=== PATIENT | female | born 1950 | race Caucasian/White ===

== ENCOUNTER 2018-04-17 07:24 | Outpatient (CLI) | payer MEDICARE, BC ==
[2018-04-17 11:11] LABS: Bilirubin Negative (Negative); Blood, Urine Negative (Negative); Clarity CLEAR (Clear); Glucose, Urine (Dipstick) Negative (Negative); Leukocyte Small (Negative); Nitrite Negative (Negative); Protein, Urine (Dipstick) Negative (Neg-Trace); Specific Gravity, Urine 1.017 (1.002-1.036); Urobilinogen 0.2 mg/dL (0.2-1.0); pH, Urine 5.5 (5.0-9.0)
[2018-04-17 11:14] LABS: Bacteria/HPF None Seen HPF (None Seen); Hyaline Casts/LPF 0-3 HYALINE CAST LPF (0-3 Hyaline); Pathc Cast-AUWi Flag 0.58 (0-2.49); RBC/HPF 0-3 HPF (0-3); Squamous Epithelial 0-3 HPF (0-3); WBC/HPF 0-3 HPF (0-3)
--- NOTE | 2018-04-17 17:08 | EKG ---
Test Reason : Blood Pressure : / mmHG Vent. Rate : 075 BPM Atrial Rate : 075 BPM P-R Int : 182 ms QRS Dur : 118 ms QT Int : 384 ms P-R-T Axes : 051 -12 055 degrees QTc Int : 428 ms Normal sinus rhythm Possible Left atrial enlargement Incomplete right bundle branch block Cannot rule out Anterior infarct , age undetermined Interference artifact Abnormal ECG No previous ECGs available Confirmed by DR. Claudine PITTMAN ([id number]) on 04/17/2018 5:08:23 PM Referred By: ROSIAT Confirmed By:DR. Claudine PITTMAN
== END 2018-04-17 07:25 | disposition home or self-care (01) ==
LOC: LABBT 07:24
PROVIDERS: ATTEND Orthopaedic Surgery
DX: Z01.818 Encounter for other preprocedural examination (principal); M16.12 Unilateral primary osteoarthritis, left hip
CPT/HCPCS: 81001; 87081; 93005; 93010

== ENCOUNTER 2018-04-17 08:45 | Inpatient (IN) | payer MEDICARE, BC ==
[2018-04-29] MEDS ORDERED: Fentanyl 100 MCG/2 ML VIAL ONE ×3 (07:43→12:26)
[2018-04-29] MEDS ORDERED: Midazolam HCl 2 mg/2 ml Vial ONE (07:43)
[2018-04-29] MEDS ORDERED: CEFAZOLIN 2 GM/50 ML BAG ONE (07:52)
[2018-04-29] MEDS ORDERED: Sodium Chloride 0.9% 100 ML ONE (07:52)
[2018-04-29] MEDS ORDERED: Tranexamic Acid 1,000 MG/10 ML VIAL ONE ×2 (07:52→13:18)
[2018-04-29] MEDS ORDERED: Vancomycin HCl 1.5 GM in Sodium Chloride 0.9% 250 ML 300 ML IVPB SCH (08:00)
[2018-04-29] MEDS ORDERED: Scopolamine 1.5 mg/72 hour Patch ONE (08:42)
[2018-04-29] MEDS ORDERED: diphenhydrAMINE 50 MG/ML VIAL IVP PRN (09:45)
[2018-04-29] MEDS ORDERED: diphenhydrAMINE 50 MG/ML VIAL IM PRN (09:45)
[2018-04-29] MEDS ORDERED: Hydrocerin (Eucerin) Cream 120 gm Jar TOP PRN (09:45)
[2018-04-29] MEDS ORDERED: Bupivacaine 0.25% 10 ML VIAL EPIDURAL PRN (09:45)
[2018-04-29] MEDS ORDERED: traMADol HCl 50 MG TAB PO PRN (09:45)
[2018-04-29] MEDS ORDERED: Promethazine HCl 25 MG SUPP PR PRN (09:45)
[2018-04-29] MEDS ORDERED: Naloxone HCl 0.4 mg/ml Vial IVP PRN (09:45)
[2018-04-29] MEDS ORDERED: HYDROcodone/Acetaminophen 5/325 mg Tablet PO PRN (09:45)
[2018-04-29] MEDS ORDERED: Naloxone HCl 0.4 mg/ml Vial IV PRN (09:45)
[2018-04-29] MEDS ORDERED: Promethazine HCl 25 MG/ML VIAL IM PRN ×2 (09:45→12:21)
[2018-04-29] MEDS ORDERED: Ondansetron PF 4 MG/2 ML Vial IVP PRN (09:45)
[2018-04-29] MEDS ORDERED: Zolpidem Tartrate 5 MG TAB PO PRN ×2 (09:45→12:21)
[2018-04-29] MEDS ORDERED: Ropivacaine 0.2% HCl/PF 20 ML ONE (10:40)
[2018-04-29] MEDS ORDERED: Acetaminophen 325 MG TAB PO PRN (12:21)
[2018-04-29] MEDS ORDERED: HYDROcodone/Acetaminophen 10/325 mg Tablet PO PRN ×2 (12:21)
[2018-04-29] MEDS ORDERED: diphenhydrAMINE 25 MG CAP PO PRN (12:21)
[2018-04-29] MEDS ORDERED: CEFAZOLIN/Water 2 GM/20 ML SYRINGE SLOW IVP SCH (12:30)
--- NOTE | 2018-04-29 13:41 | RAD ---
RADIOGRAPH LEFT HIP TWO VIEWS: Date: 04-29-18 Time: 12:36 p.m. History: 68-year-old female with chronic left hip pain, status post-surgery. Comparison: None. FINDINGS: Metallic acetabular cup articulates with metallic femoral head prosthesis, connected to metallic stem that reaches the proximal femoral shaft. IMPRESSION: Status post total left hip placement arthroplasty. POS: MEME
[2018-04-29] MEDS: sulfaSALAzine 500 MG TAB PO SCH ×3 (14:22→21:12)
[2018-04-29] MEDS: Ketorolac Tromethamine 30 MG/ML VIAL IVP SCH ×2 (14:25→17:50)
[2018-04-29] MEDS: Sodium Chloride 0.9% 1,000 ML IV SCH ×2 (14:25→20:29)
[2018-04-29] MEDS ORDERED: Artificial Tears 18 DROP/0.9 ML EA EYE PRN (14:27)
[2018-04-29] MEDS ORDERED: hydrALAZINE 20 MG/ML VIAL SLOW IVP PRN (14:27)
[2018-04-29] MEDS ORDERED: Eucerin (Mineral Oil/Petrolatum,White) 30 gm Jar TOP PRN (14:27)
[2018-04-29] MEDS ORDERED: Diabetic Tussin 200 MG/10 ML UDCUP PO PRN (14:27)
[2018-04-29] MEDS ORDERED: Calcium Carbonate 500 MG ChewTAB PO PRN (14:27)
[2018-04-29] MEDS ORDERED: Sodium Chloride 0.65% Nasal 44 ML BOT EA NARE PRN (14:27)
[2018-04-29] MEDS ORDERED: Loperamide HCl 2 MG CAP PO PRN (14:27)
[2018-04-29] MEDS ORDERED: Cepastat Lozenges 1 LOZ PO PRN (14:27)
--- NOTE | 2018-04-29 14:40 | PDOC.PN ---
- Subjective Encounter Start Date: 04/29/18 Encounter Start Time: 14:39 -: old records requested/rev pt c/o parasthesia in her hands, pain controlled, has parathyroidectomy in past , s/p left hip replacement, consulted for medical management Patient seen and examined. - Objective Resuscitation Status - Order Detail: 04/29/18 14:27 Resuscitation Status Routine Resuscitation Status: FULL: Full Resuscitation MAR Reviewed: Yes Vital Signs & Weight: Weight Weight 225 lb Additional Labs: old meditech record reviewed Radiology Reviewed by me: Yes (hip xray reviewed) EKG Reviewed by me: Yes (ekg rbbb) Phys Exam - Physical Examination Constitutional: NAD HEENT: PERRLA, moist MMs, sclera anicteric Neck: no JVD, supple Respiratory: no wheezing, no rales, no rhonchi Cardiovascular: RRR, no significant murmur, no rub Gastrointestinal: soft, non-tender, no distention, positive bowel sounds Musculoskeletal: no edema, pulses present surgical site with dressing, epidural in place, liang+ scd+ Neurological: non-focal, normal sensation, moves all 4 limbs Lymphatic: no nodes Psychiatric: normal affect, A&O x 3 Skin: no rash, normal turgor Dx/Plan (1) Status post total hip replacement, left Code(s): Z96.642 - PRESENCE OF LEFT ARTIFICIAL HIP JOINT Status: Acute (2) Rheumatoid arthritis Code(s): M06.9 - RHEUMATOID ARTHRITIS, UNSPECIFIED Status: Chronic (3) Postsurgical hypoparathyroidism Code(s): E89.2 - POSTPROCEDURAL HYPOPARATHYROIDISM Status: Chronic (4) GERD (gastroesophageal reflux disease) Code(s): K21.9 - GASTRO-ESOPHAGEAL REFLUX DISEASE WITHOUT ESOPHAGITIS Status: Chronic (5) Hypertension Code(s): I10 - ESSENTIAL (PRIMARY) HYPERTENSION Status: Chronic (6) Morbid obesity with BMI of 40.0-44.9, adult Code(s): E66.01 - MORBID (SEVERE) OBESITY DUE TO EXCESS CALORIES; Z68.41 - BODY MASS INDEX (BMI) 40.0-44.9, ADULT Status: Chronic - Plan cont current plan of care, plan discussed w/ family, PT/OT * will check CMP now * will start calcium rich food and her calcium supplement * home medication reconciled * will hold BP meds for SBP <120 * medication reviewed as below * symptomatic treatment * epidural as per anesthesia * discussed with family * code status full code * PT/OT as per [facility] protocol treatment. Review of Systems - Review of Systems Eyes: negative: Pain, Vision Change, Conjunctivae Inflammation, Eyelid Inflammation, Redness, Other ENT: negative: Ear Pain, Ear Discharge, Nose Pain, Nose Discharge, Nose Congestion, Mouth Pain, Mouth Swelling, Throat Pain, Throat Swelling, Other Respiratory: negative: Cough, Dry, Shortness of Breath, Hemoptysis, SOB with Excertion, Pleuritic Pain, Sputum, Wheezing Cardiovascular: negative: chest pain, palpitations, orthopnea, paroxysmal nocturnal dyspnea, edema, light headedness, other Gastrointestinal: negative: Nausea, Vomiting, Abdominal Pain, Diarrhea, Constipation, Melena, Hematochezia, Other Genitourinary: negative: Dysuria, Frequency, Incontinence, Hematuria, Retention , Other Musculoskeletal: negative: Neck Pain, Shoulder Pain, Arm Pain, Back Pain, Hand Pain, Leg Pain, Foot Pain, Other Neurological: Numbness. negative: Weakness, Incoordination, Change in Speech, Confusion, Seizures, Other - Medications/Allergies Allergies/Adverse Reactions: Allergies Allergy/AdvReac Type Severity Reaction Status Date / Time No Known Allergies Allergy Verified 04/17/18 12:31 Medications: Current Medications Acetaminophen (Tylenol) 650 mg PO Q4H PRN PRN Reason: Headache/Fever or Pain Hydrocodone Bitart/Acetaminophen ([place] 5/325) 1 tab PO Q4H PRN PRN Reason: Mild Pain 0-3 Hydrocodone Bitart/Acetaminophen ([place] 5/325) 2 tab PO Q4H PRN PRN Reason: For Moderate Pain 4-6 Artificial Tears (Tears Naturale) 2 drop EA EYE PRN PRN PRN Reason: Dry Eyes Aspirin (Ecotrin) 81 mg PO BID [facility] Bupivacaine HCl (Marcaine) 5 ml EPIDURAL ONE PRN PRN Reason: UNCONTROLLED PAIN Stop: 05/02/18 09:46 Calcium Carbonate (Tums) 1,000 mg PO Q4H PRN PRN Reason: Heartburn or Indigestion Calcium/Vitamin D (Caltrate 600 + Vit D) 1 tab PO BID [facility] Last Admin: 04/29/18 14:18 Dose: 1 tab Celecoxib (Celebrex) 200 mg PO DAILY [facility] Cholecalciferol (Vitamin D3) 1,000 units PO DAILY [facility] Diphenhydramine HCl (Benadryl) 25 mg PO Q3H PRN PRN Reason: Itching Diphenhydramine HCl (Benadryl) 25 mg IM Q3H PRN PRN Reason: Itching Diphenhydramine HCl (Benadryl) 25 mg IVP Q3H PRN PRN Reason: Itching Diphenhydramine HCl (Benadryl) 25 mg PO Q6H PRN PRN Reason: Itching Docusate Sodium (Colace) 200 mg PO DAILY [facility] Emollient Cream (Hydrocerin Cream) 0 gm TOP PRN PRN PRN Reason: Itching Ferrous Gluconate (Fergon) 324 mg PO BID [facility] Guaifenesin (Robitussin Sf) 200 mg PO Q4H PRN PRN Reason: Cough HCTZ/Losartan Potassium (Hyzaar 100/25) 1 tab PO DAILY [facility] Hydralazine HCl (Apresoline) 10 mg SLOW IVP Q4H PRN PRN Reason: SBP > 180 and HR < 70 Acetaminophen 1,000 mg/ Device 100 mls @ 400 mls/hr IVPB Q6H PRN PRN Reason: MILD PAIN/FEVER Stop: 04/30/18 09:46 Bupivacaine HCl 10 ml/ Sodium (Chloride) 100 mls @ 8 mls/hr EPIDURAL INF [facility] Sodium Chloride (Normal Saline 0.9%) 1,000 mls @ 100 mls/hr IV .Q10H [facility] Last Admin: 04/29/18 14:25 Dose: Not Given Cefazolin Sodium/Dextrose 2 gm (/ Device) 50 mls @ 100 mls/hr IVPB 0800,1600, 2359 [facility] Stop: 04/30/18 00:28 Iron/Minerals/Multivitamins (Theragran M) 1 tab PO DAILY [facility] Ketorolac Tromethamine (Toradol) 15 mg IVP Q6HR [facility] Stop: 05/01/18 06:01 Last Admin: 04/29/18 14:25 Dose: Not Given Loperamide HCl (Imodium) 2 mg PO PRN PRN PRN Reason: Diarrhea/Loose Stools Mineral Oil/White Petrolatum (Eucerin Cream) 0 gm TOP BIDPRN PRN PRN Reason: Dry Skin Miscellaneous Information (Communication Order-Pharmacy) 1 each FS ASDIR ELO[facility] Naloxone HCl (Narcan) 0.2 mg IV Q5MIN PRN PRN Reason: RR <=8 OR OBTUNDED/UNAROUSABLE Naloxone HCl (Narcan) 0.1 mg IVP Q15MIN PRN PRN Reason: URINARY RETENTION Ondansetron HCl (Zofran) 4 mg IVP Q6H PRN PRN Reason: Nausea/Vomiting Ondansetron HCl (Zofran) 4 mg IVP Q6H PRN PRN Reason: Nausea/Vomiting Pantoprazole Sodium (Protonix) 40 mg PO DAILY [facility] Promethazine HCl (Phenergan) 12.5 mg IM Q4H PRN PRN Reason: Nausea Promethazine HCl (Phenergan Suppository) 25 mg UT Q4H PRN PRN Reason: Nausea/Vomiting Promethazine HCl (Phenergan) 12.5 mg IM Q4H PRN PRN Reason: Nausea/Vomiting Senna/Docusate Sodium (Senokot S) 2 tab PO BID [facility] Sodium Chloride (Flush - Normal Saline) 10 ml IVF PRN PRN PRN Reason: Saline Flush Sodium Chloride ([place] Nasal [place] 0.65%) 0 ml EA NARE QIDPRN PRN PRN Reason: Nasal Congestion Sulfasalazine (Azulfidine) 500 mg PO QID [facility] Last Admin: 04/29/18 14:22 Dose: Not Given Throat Lozenges (Cepastat Lozenges) 1 esequiel PO Q2H PRN PRN Reason: Sore Throat Tramadol HCl (Ultram) 50 mg PO Q6H PRN PRN Reason: Mild Pain 1-3 Tramadol HCl (Ultram) 100 mg PO Q6H PRN PRN Reason: Moderate Pain 4-6 Trazodone HCl (Desyrel) 75 mg PO HS [facility] Zolpidem Tartrate (Ambien) 5 mg PO HSPRN PRN PRN Reason: Insomnia
[2018-04-29 15:24] LABS: ALT (SGPT) 16 U/L (8-55); AST (SGOT) 19 U/L (5-34); Albumin 3.6 g/dL (3.4-4.8); Alkaline Phosphatase 62 U/L (40-150); Anion Gap 10 mmol/L (10-20); BUN (Urea Nitrogen) 13 mg/dL (9.8-20.1); Bilirubin, Total 0.4 mg/dL (0.2-1.2); Calc. Creatinine Clearance 114 mL/min (70-130); Calcium 8.6 mg/dL (7.8-10.44); Carbon Dioxide 29 mmol/L (23-31); Chloride 105 mmol/L (98-107); Estimated GFR-MDRD 77; Globulin 2.4 g/dL (2.4-3.5); Glucose 131 mg/dL (80-115); Potassium 3.8 mmol/L (3.5-5.1); Sodium 140 mmol/L (136-145)
[2018-04-29] MEDS: HYDROcodone/Acetaminophen 5/325 mg Tablet PO PRN (15:59)
[2018-04-29] MEDS ORDERED: Ondansetron PF 4 MG/2 ML Vial ONE (16:22)
[2018-04-29] MEDS ORDERED: ePHEDrine/0.9% NaCl/PF SYRINGE 50 mg/10 ml ONE (16:22)
[2018-04-29] MEDS ORDERED: Rocuronium Bromide 10 MG/ML (10ML VIAL) ONE (16:22)
[2018-04-29] MEDS ORDERED: Lidocaine 1% PF 5 ML VIAL ONE (16:22)
[2018-04-29] MEDS ORDERED: PROPOFOL 200 MG/20 ML VIAL ONE (16:22)
[2018-04-29] MEDS ORDERED: Glycopyrrolate 0.2 MG/ML 5 ML SYRINGE ONE (16:22)
[2018-04-29 16:53] VITALS: BMI 42.5
[2018-04-29] MEDS: CEFAZOLIN 2 GM/50 ML-DEXTROSE 2 GM in Premix Bag 1 BAG IVPB SCH (17:49)
--- NOTE | 2018-04-29 18:45 | OP ---
DATE OF PROCEDURE: 04/29/2018 PROCEDURE PERFORMED: Left total hip arthroplasty using a [place] Accolade #2.5 stem, 48 mm cup, a 36 mm -2.5 ceramic head with an X3 liner, that is [place] 2. ULTRASOUND TECHNICIAN: Andrae. BLOOD LOSS: 300. SPECIMENS: None. DRAINS: None. COMPLICATIONS: None. PROCEDURE IN DETAIL: After informed consent was obtained in the preoperative holding area, the patient was taken to the operative suite where general anesthesia was induced. The patient was then positioned in the lateral decubitus position. The hip was then prepped and draped in usual sterile fashion. The patient received preoperative antibiotics. Prior to incision, time-out was called and all members of the surgical team agreed upon site, surgeon, and patient. After this, a longitudinal incision was made directly over the trochanter, noted by palpation extending 2 fingerbreadths above and below the trochanter. The deeper subcutaneous layer was undermined with Bovie electrocautery. The iliotibial band was encountered and incised sharply and the plane below this was developed bluntly. A Charnley retractor was placed to hold this opened. The lateral aspect of the trochanter and the abductor muscles were encountered and then reflected anteriorly off the trochanter using Bovie electrocautery. Once this was completed, the anterior capsule was then encountered and identified and copious capsulotomy was carried out, exposing the femoral neck and head. Dislocation maneuver was then performed and an in situ provisional neck cut was then made using the oscillating saw. Attention was then turned to acetabular preparation and sequential reaming was carried out up to the appropriate diameter. A trial was then malleted into place with good firm resistance and no pullout. The permanent acetabular shell was then malleted squarely into place, as was the appropriate liner. Once completed, the wound was copiously irrigated and attention was then turned to femoral preparation. Flexion and external rotation were performed of the exposed thigh and femoral elevators were then placed at the proximal aspect of the wound. Canal finder was used to establish the length of the canal and sequential reaming was carried out, followed by broaching. Once the appropriate stability was established with the trial broaches with flexion, extension and rotational stability, we did trial with neutral and 2 mm offset incremental necks. Once the appropriate size was decided upon, with good stability noted with flexion, extension, internal and external rotation and shuck being negative, we removed the femoral trial broach and malletted into place the permanent prosthesis with good firm fit, which was also stable to rotation. Again, the hip felt very stable to flexion, extension, internal and external rotation. Leg lengths appeared near anatomic clinically and we were quite happy with prosthesis placement. Copious irrigation was then carried out through the entirety of the wound. Primary closure of the abductors was accomplished with interrupted #2 Vicryl [id number] stitches and the IT band was then closed with interrupted #2 Vicryl, oversewn with a #2 running barbed Quill stitch. Subcutaneous fascia was closed with running barbed Quill stitch and a subcuticular Monocryl barbed Quill stitch was used for skin closure and augmented with skin cement. A sterile dressing was applied. The procedure was terminated without any complication. All counts were correct. The patient was awakened in the operative suite and taken to the recovery room in stable condition. Job ID: [id number]
[2018-04-29] MEDS: Ferrous Gluconate 324 MG TAB PO SCH (19:37)
[2018-04-29] MEDS: Senokot S 8.6-50 MG TAB PO SCH (19:37)
[2018-04-29] MEDS: traZODone HCl 50 MG TAB PO SCH (20:27)
[2018-04-29] MEDS: Aspirin 81 mg Enteric Coated Tablet PO SCH (20:27)
[2018-04-29] MEDS: traMADol HCl 50 MG TAB PO PRN (20:28)
[2018-04-29] MEDS: Calcium Carbonate + Vit D 1 TAB PO SCH (20:37)
[2018-04-29] MEDS: Acetaminophen 1,000 MG in Premix Bag 1 BAG IVPB PRN (20:45)
[2018-04-29] MEDS ORDERED: Calcium Carbonate + Vit D 1 TAB PO SCH (21:00)
[2018-04-29] MEDS: Ondansetron PF 4 MG/2 ML Vial IVP PRN (21:56)
[2018-04-30] MEDS: CEFAZOLIN 2 GM/50 ML-DEXTROSE 2 GM in Premix Bag 1 BAG IVPB SCH (01:04)
[2018-04-30] MEDS: Ketorolac Tromethamine 30 MG/ML VIAL IVP SCH ×5 (01:05→23:27)
[2018-04-30] MEDS: Bupivacaine 10 ML in Sodium Chloride 0.9% 90 ML EPIDURAL SCH ×2 (02:00→16:39)
[2018-04-30] MEDS: Acetaminophen 1,000 MG in Premix Bag 1 BAG IVPB PRN (03:05)
[2018-04-30] MEDS: traMADol HCl 50 MG TAB PO PRN ×2 (04:08→13:16)
[2018-04-30] MEDS: Sodium Chloride 0.9% 1,000 ML IV SCH ×2 (07:12→17:15)
[2018-04-30 07:52] LABS: Hemoglobin 10.2 g/dL (12.0-16.0); Mean Corpuscular Volume 96.8 fL (78.0-98.0); Mean Platelet Volume 7.1 fL (7.4-10.4); Platelet Count 284 thou/uL (130-400); RBC Distribution Width 11.7 % (11.5-14.5); Red Blood Cell (RBC) Count 3.29 mill/uL (4.20-5.40); White Blood Cell (WBC) Count 9.9 thou/uL (4.8-10.8)
[2018-04-30] MEDS: Calcium Carbonate + Vit D 1 TAB PO SCH ×2 (08:34→20:44)
[2018-04-30] MEDS: Docusate 100 MG CAP PO SCH (08:34)
[2018-04-30] MEDS: Aspirin 81 mg Enteric Coated Tablet PO SCH ×2 (08:34→20:49)
[2018-04-30] MEDS: Multivitamin W/ Minerals 1 TAB PO SCH (08:35)
[2018-04-30] MEDS: Senokot S 8.6-50 MG TAB PO SCH ×2 (08:35→20:46)
[2018-04-30] MEDS: Ferrous Gluconate 324 MG TAB PO SCH ×2 (08:35→20:44)
[2018-04-30] MEDS: sulfaSALAzine 500 MG TAB PO SCH ×4 (08:36→20:45)
[2018-04-30] MEDS: Losartan/Hydrochlorothiazide 100 mg/25 mg Tablet PO SCH (08:36)
[2018-04-30] MEDS ORDERED: Multivit, Therapeutic 1 TAB PO SCH (09:00)
[2018-04-30] MEDS: HYDROcodone/Acetaminophen 5/325 mg Tablet PO PRN (09:03)
[2018-04-30] MEDS: Ondansetron PF 4 MG/2 ML Vial IVP PRN (10:04)
--- NOTE | 2018-04-30 12:27 | PDOC.PN ---
- Subjective Encounter Start Date: 04/30/18 Encounter Start Time: 08:00 Patient seen and examined. No new complaints. No overnight events - Objective Resuscitation Status - Order Detail: 04/29/18 14:27 Resuscitation Status Routine Resuscitation Status: FULL: Full Resuscitation MAR Reviewed: Yes Vital Signs & Weight: Vital Signs (12 hours) Temp Pulse Pulse Resp BP BP BP 04/30/18 09:54 65 102/60 04/30/18 08:00 04/30/18 07:56 98.2 F 65 20 100/63 04/30/18 04:55 98.4 F 76 18 112/59 L 112/59 L 04/30/18 00:55 97.4 F L 80 16 108/67 Pulse Ox 04/30/18 09:54 04/30/18 08:00 94 L 04/30/18 07:56 94 L 04/30/18 04:55 97 04/30/18 00:55 94 L Weight Weight 225 lb I&O: 04/29/18 04/30/18 05/01/18 06:59 06:59 06:59 Intake Total 3400 Output Total 1125 Balance 2275 Result Diagrams: 04/30/18 07:16 04/29/18 14:52 Phys Exam - Physical Examination Constitutional: NAD HEENT: PERRLA, moist MMs, sclera anicteric Neck: no JVD, supple Respiratory: no wheezing, no rales, no rhonchi Cardiovascular: RRR, no significant murmur, no rub Gastrointestinal: soft, non-tender, no distention, positive bowel sounds Musculoskeletal: no edema, pulses present surgical site with dressing, epidural in place, liang+ Neurological: non-focal, normal sensation Lymphatic: no nodes Psychiatric: normal affect, A&O x 3 Skin: no rash, normal turgor Dx/Plan (1) Status post total hip replacement, left Code(s): Z96.642 - PRESENCE OF LEFT ARTIFICIAL HIP JOINT Status: Acute (2) Rheumatoid arthritis Code(s): M06.9 - RHEUMATOID ARTHRITIS, UNSPECIFIED Status: Chronic (3) Postsurgical hypoparathyroidism Code(s): E89.2 - POSTPROCEDURAL HYPOPARATHYROIDISM Status: Chronic (4) GERD (gastroesophageal reflux disease) Code(s): K21.9 - GASTRO-ESOPHAGEAL REFLUX DISEASE WITHOUT ESOPHAGITIS Status: Chronic (5) Hypertension Code(s): I10 - ESSENTIAL (PRIMARY) HYPERTENSION Status: Chronic (6) Morbid obesity with BMI of 40.0-44.9, adult Code(s): E66.01 - MORBID (SEVERE) OBESITY DUE TO EXCESS CALORIES; Z68.41 - BODY MASS INDEX (BMI) 40.0-44.9, ADULT Status: Chronic - Plan cont current plan of care, plan discussed w/ family, PT/OT, incentive spirometry * will hold BP meds for SBP <120 * medication reviewed as below * symptomatic treatment * epidural as per anesthesia * discussed with family * PT/OT as per [facility] protocol treatment. * continue home meds Review of Systems - Review of Systems ENT: negative: Ear Pain, Ear Discharge, Nose Pain, Nose Discharge, Nose Congestion, Mouth Pain, Mouth Swelling, Throat Pain, Throat Swelling, Other Respiratory: negative: Cough, Dry, Shortness of Breath, Hemoptysis, SOB with Excertion, Pleuritic Pain, Sputum, Wheezing Cardiovascular: negative: chest pain, palpitations, orthopnea, paroxysmal nocturnal dyspnea, edema, light headedness, other Gastrointestinal: negative: Nausea, Vomiting, Abdominal Pain, Diarrhea, Constipation, Melena, Hematochezia, Other Genitourinary: negative: Dysuria, Frequency, Incontinence, Hematuria, Retention , Other Musculoskeletal: negative: Neck Pain, Shoulder Pain, Arm Pain, Back Pain, Hand Pain, Leg Pain, Foot Pain, Other - Medications/Allergies Allergies/Adverse Reactions: Allergies Allergy/AdvReac Type Severity Reaction Status Date / Time No Known Allergies Allergy Verified 04/17/18 12:31 Medications: Current Medications Acetaminophen (Tylenol) 650 mg PO Q4H PRN PRN Reason: Headache/Fever or Pain Hydrocodone Bitart/Acetaminophen ([place] 5/325) 1 tab PO Q4H PRN PRN Reason: Mild Pain 0-3 Hydrocodone Bitart/Acetaminophen ([place] 5/325) 2 tab PO Q4H PRN PRN Reason: For Moderate Pain 4-6 Last Admin: 04/30/18 09:03 Dose: 2 tab Artificial Tears (Tears Naturale) 2 drop EA EYE PRN PRN PRN Reason: Dry Eyes Aspirin (Ecotrin) 81 mg PO BID [facility] Last Admin: 04/30/18 08:34 Dose: 81 mg Bupivacaine HCl (Marcaine) 5 ml EPIDURAL ONE PRN PRN Reason: UNCONTROLLED PAIN Stop: 05/02/18 09:46 Calcium Carbonate (Tums) 1,000 mg PO Q4H PRN PRN Reason: Heartburn or Indigestion Calcium/Vitamin D (Caltrate 600 + Vit D) 1 tab PO BID [facility] Last Admin: 04/30/18 08:34 Dose: 1 tab Celecoxib (Celebrex) 200 mg PO DAILY [facility] Cholecalciferol (Vitamin D3) 1,000 units PO DAILY [facility] Last Admin: 04/30/18 08:35 Dose: 1,000 units Diphenhydramine HCl (Benadryl) 25 mg PO Q3H PRN PRN Reason: Itching Diphenhydramine HCl (Benadryl) 25 mg IM Q3H PRN PRN Reason: Itching Diphenhydramine HCl (Benadryl) 25 mg IVP Q3H PRN PRN Reason: Itching Docusate Sodium (Colace) 200 mg PO DAILY [facility] Last Admin: 04/30/18 08:34 Dose: 200 mg Emollient Cream (Hydrocerin Cream) 0 gm TOP PRN PRN PRN Reason: Itching Ferrous Gluconate (Fergon) 324 mg PO BID [facility] Last Admin: 04/30/18 08:35 Dose: 324 mg Guaifenesin (Robitussin Sf) 200 mg PO Q4H PRN PRN Reason: Cough HCTZ/Losartan Potassium (Hyzaar 100/25) 1 tab PO DAILY [facility] Last Admin: 04/30/18 08:36 Dose: Not Given Hydralazine HCl (Apresoline) 10 mg SLOW IVP Q4H PRN PRN Reason: SBP > 180 and HR < 70 Bupivacaine HCl 10 ml/ Sodium (Chloride) 100 mls @ 8 mls/hr EPIDURAL INF [facility] Last Admin: 04/30/18 02:00 Dose: 100 mls Sodium Chloride (Normal Saline 0.9%) 1,000 mls @ 100 mls/hr IV .Q10H [facility] Last Admin: 04/30/18 07:12 Dose: Not Given Iron/Minerals/Multivitamins (Theragran M) 1 tab PO DAILY [facility] Last Admin: 04/30/18 08:35 Dose: 1 tab Ketorolac Tromethamine (Toradol) 15 mg IVP Q6HR [facility] Stop: 05/01/18 06:01 Last Admin: 04/30/18 12:04 Dose: 15 mg Loperamide HCl (Imodium) 2 mg PO PRN PRN PRN Reason: Diarrhea/Loose Stools Mineral Oil/White Petrolatum (Eucerin Cream) 0 gm TOP BIDPRN PRN PRN Reason: Dry Skin Miscellaneous Information (Communication Order-Pharmacy) 1 each FS ASDIR [facility] Naloxone HCl (Narcan) 0.2 mg IV Q5MIN PRN PRN Reason: RR <=8 OR OBTUNDED/UNAROUSABLE Naloxone HCl (Narcan) 0.1 mg IVP Q15MIN PRN PRN Reason: URINARY RETENTION Ondansetron HCl (Zofran) 4 mg IVP Q6H PRN PRN Reason: Nausea/Vomiting Last Admin: 04/30/18 10:04 Dose: 4 mg Pantoprazole Sodium (Protonix) 40 mg PO DAILY [facility] Last Admin: 04/30/18 08:34 Dose: 40 mg Promethazine HCl (Phenergan Suppository) 25 mg [place] Q4H PRN PRN Reason: Nausea/Vomiting Promethazine HCl (Phenergan) 12.5 mg IM Q4H PRN PRN Reason: Nausea/Vomiting Senna/Docusate Sodium (Senokot S) 2 tab PO BID [facility] Last Admin: 04/30/18 08:35 Dose: 2 tab Sodium Chloride (Flush - Normal Saline) 10 ml IVF PRN PRN PRN Reason: Saline Flush Last Admin: 04/30/18 12:05 Dose: 10 ml Sodium Chloride ([place] Nasal [place] 0.65%) 0 ml EA NARE QIDPRN PRN PRN Reason: Nasal Congestion Sulfasalazine (Azulfidine) 500 mg PO QID [facility] Last Admin: 04/30/18 08:36 Dose: Not Given Throat Lozenges (Cepastat Lozenges) 1 esequiel PO Q2H PRN PRN Reason: Sore Throat Tramadol HCl (Ultram) 50 mg PO Q6H PRN PRN Reason: Mild Pain 1-3 Tramadol HCl (Ultram) 100 mg PO Q6H PRN PRN Reason: Moderate Pain 4-6 Last Admin: 04/30/18 04:08 Dose: 100 mg Trazodone HCl (Desyrel) 75 mg PO [facility] Last Admin: 04/29/18 20:27 Dose: 75 mg Zolpidem Tartrate (Ambien) 5 mg PO HSPRN PRN PRN Reason: Insomnia
[2018-04-30] MEDS: diphenhydrAMINE 25 MG CAP PO PRN (14:12)
[2018-04-30] MEDS: traZODone HCl 50 MG TAB PO SCH (20:44)
[2018-05-01] MEDS: Sodium Chloride 0.9% 1,000 ML IV SCH ×3 (04:09→22:21)
[2018-05-01] MEDS: Ketorolac Tromethamine 30 MG/ML VIAL IVP SCH (05:22)
[2018-05-01 06:26] LABS: Hemoglobin 10.6 g/dL (12.0-16.0); Mean Corpuscular HGB CONC 32.7 g/dL (32.0-36.0); Mean Corpuscular Hemoglobin 31.9 pg (27.0-31.0); Mean Corpuscular Volume 97.6 fL (78.0-98.0); Mean Platelet Volume 7.2 fL (7.4-10.4); Platelet Count 270 thou/uL (130-400); RBC Distribution Width 11.8 % (11.5-14.5); Red Blood Cell (RBC) Count 3.33 mill/uL (4.20-5.40); White Blood Cell (WBC) Count 9.8 thou/uL (4.8-10.8)
[2018-05-01] MEDS: Bupivacaine 10 ML in Sodium Chloride 0.9% 90 ML EPIDURAL SCH ×2 (06:59→23:19)
[2018-05-01] MEDS: Ferrous Gluconate 324 MG TAB PO SCH ×2 (08:25→21:00)
[2018-05-01] MEDS: CeleCOXIB 100 MG CAP PO SCH (08:25)
[2018-05-01] MEDS: Docusate 100 MG CAP PO SCH (08:25)
[2018-05-01] MEDS: Senokot S 8.6-50 MG TAB PO SCH ×2 (08:26→20:59)
[2018-05-01] MEDS: Calcium Carbonate + Vit D 1 TAB PO SCH ×2 (08:26→21:00)
[2018-05-01] MEDS: Multivitamin W/ Minerals 1 TAB PO SCH (08:26)
[2018-05-01] MEDS: Aspirin 81 mg Enteric Coated Tablet PO SCH ×2 (08:26→21:00)
[2018-05-01] MEDS: sulfaSALAzine 500 MG TAB PO SCH ×4 (08:27→21:09)
[2018-05-01] MEDS: Losartan/Hydrochlorothiazide 100 mg/25 mg Tablet PO SCH (08:28)
[2018-05-01] MEDS: Cephalexin 250 MG CAP PO SCH ×2 (09:58→21:00)
[2018-05-01] MEDS: HYDROcodone/Acetaminophen 5/325 mg Tablet PO PRN ×2 (10:21→14:55)
--- NOTE | 2018-05-01 12:18 | PDOC.PN ---
- Subjective Encounter Start Date: 05/01/18 Encounter Start Time: 08:45 Patient seen and examined. No new complaints. No overnight events - Objective Resuscitation Status - Order Detail: 04/29/18 14:27 Resuscitation Status Routine Resuscitation Status: FULL: Full Resuscitation MAR Reviewed: Yes Vital Signs & Weight: Vital Signs (12 hours) Temp Pulse Resp BP Pulse Ox 05/01/18 07:37 99.8 F H 86 20 96/61 92 L 05/01/18 07:32 94 L 05/01/18 04:15 99.2 F 78 16 111/64 94 L Weight Admit Weight 225 lb Weight 225 lb I&O: 04/30/18 05/01/18 05/02/18 06:59 06:59 06:59 Intake Total 3400 1320 Output Total 1125 1900 Balance 2275 -580 Result Diagrams: 05/01/18 05:50 04/29/18 14:52 Phys Exam - Physical Examination Constitutional: NAD HEENT: PERRLA, moist MMs, sclera anicteric Neck: no JVD, supple Respiratory: no wheezing, no rales, no rhonchi Cardiovascular: RRR, no significant murmur, no rub Gastrointestinal: soft, non-tender, no distention, positive bowel sounds Musculoskeletal: no edema, pulses present Neurological: non-focal, normal sensation Lymphatic: no nodes Psychiatric: normal affect, A&O x 3 Skin: no rash, normal turgor Dx/Plan (1) Status post total hip replacement, left Code(s): Z96.642 - PRESENCE OF LEFT ARTIFICIAL HIP JOINT Status: Acute (2) Rheumatoid arthritis Code(s): M06.9 - RHEUMATOID ARTHRITIS, UNSPECIFIED Status: Chronic (3) Postsurgical hypoparathyroidism Code(s): E89.2 - POSTPROCEDURAL HYPOPARATHYROIDISM Status: Chronic (4) GERD (gastroesophageal reflux disease) Code(s): K21.9 - GASTRO-ESOPHAGEAL REFLUX DISEASE WITHOUT ESOPHAGITIS Status: Chronic (5) Hypertension Code(s): I10 - ESSENTIAL (PRIMARY) HYPERTENSION Status: Chronic (6) Morbid obesity with BMI of 40.0-44.9, adult Code(s): E66.01 - MORBID (SEVERE) OBESITY DUE TO EXCESS CALORIES; Z68.41 - BODY MASS INDEX (BMI) 40.0-44.9, ADULT Status: Chronic (7) Anemia, normocytic normochromic Code(s): D64.9 - ANEMIA, UNSPECIFIED Status: Chronic (8) Chronic low back pain Code(s): M54.5 - LOW BACK PAIN; G89.29 - OTHER CHRONIC PAIN Status: Chronic - Plan cont current plan of care, PT/OT, socially responsible investment adviser * medication reviewed as below * symptomatic treatment * medically stable * continue incentive spirometry * discharge per primary team * will need swing bed. Review of Systems - Review of Systems ENT: negative: Ear Pain, Ear Discharge, Nose Pain, Nose Discharge, Nose Congestion, Mouth Pain, Mouth Swelling, Throat Pain, Throat Swelling, Other Respiratory: negative: Cough, Dry, Shortness of Breath, Hemoptysis, SOB with Excertion, Pleuritic Pain, Sputum, Wheezing Cardiovascular: negative: chest pain, palpitations, orthopnea, paroxysmal nocturnal dyspnea, edema, light headedness, other Gastrointestinal: negative: Nausea, Vomiting, Abdominal Pain, Diarrhea, Constipation, Melena, Hematochezia, Other Genitourinary: negative: Dysuria, Frequency, Incontinence, Hematuria, Retention , Other Musculoskeletal: negative: Neck Pain, Shoulder Pain, Arm Pain, Back Pain, Hand Pain, Leg Pain, Foot Pain, Other Skin: negative: Rash, Lesions, Jack, Bruising, Other - Medications/Allergies Allergies/Adverse Reactions: Allergies Allergy/AdvReac Type Severity Reaction Status Date / Time No Known Allergies Allergy Verified 04/17/18 12:31 Medications: Current Medications Acetaminophen (Tylenol) 650 mg PO Q4H PRN PRN Reason: Headache/Fever or Pain Hydrocodone Bitart/Acetaminophen ([place] 5/325) 1 tab PO Q4H PRN PRN Reason: Mild Pain 0-3 Hydrocodone Bitart/Acetaminophen ([place] 5/325) 2 tab PO Q4H PRN PRN Reason: For Moderate Pain 4-6 Last Admin: 05/01/18 10:21 Dose: 2 tab Artificial Tears (Tears Naturale) 2 drop EA EYE PRN PRN PRN Reason: Dry Eyes Aspirin (Ecotrin) 81 mg PO BID ELOY Last Admin: 05/01/18 08:26 Dose: 81 mg Bupivacaine HCl (Marcaine) 5 ml EPIDURAL ONE PRN PRN Reason: UNCONTROLLED PAIN Stop: 05/02/18 09:46 Calcium Carbonate (Tums) 1,000 mg PO Q4H PRN PRN Reason: Heartburn or Indigestion Calcium/Vitamin D (Caltrate 600 + Vit D) 1 tab PO BID [facility] Last Admin: 05/01/18 08:26 Dose: 1 tab Celecoxib (Celebrex) 200 mg PO DAILY [facility] Last Admin: 05/01/18 08:25 Dose: 200 mg Cephalexin (Keflex) 500 mg PO Q12HR [facility] Stop: 05/06/18 23:59 Last Admin: 05/01/18 09:58 Dose: 500 mg Cholecalciferol (Vitamin D3) 1,000 units PO DAILY [facility] Last Admin: 05/01/18 08:26 Dose: 1,000 units Diphenhydramine HCl (Benadryl) 25 mg PO Q3H PRN PRN Reason: Itching Last Admin: 04/30/18 14:12 Dose: 25 mg Diphenhydramine HCl (Benadryl) 25 mg IM Q3H PRN PRN Reason: Itching Diphenhydramine HCl (Benadryl) 25 mg IVP Q3H PRN PRN Reason: Itching Docusate Sodium (Colace) 200 mg PO DAILY [facility] Last Admin: 05/01/18 08:25 Dose: 200 mg Emollient Cream (Hydrocerin Cream) 0 gm TOP PRN PRN PRN Reason: Itching Ferrous Gluconate (Fergon) 324 mg PO BID [facility] Last Admin: 05/01/18 08:25 Dose: 324 mg Guaifenesin (Robitussin Sf) 200 mg PO Q4H PRN PRN Reason: Cough HCTZ/Losartan Potassium (Hyzaar 100/25) 1 tab PO DAILY [facility] Last Admin: 05/01/18 08:28 Dose: Not Given Hydralazine HCl (Apresoline) 10 mg SLOW IVP Q4H PRN PRN Reason: SBP > 180 and HR < 70 Bupivacaine HCl 10 ml/ Sodium (Chloride) 100 mls @ 8 mls/hr EPIDURAL INF [facility] Last Admin: 05/01/18 06:59 Dose: 100 mls Sodium Chloride (Normal Saline 0.9%) 1,000 mls @ 100 mls/hr IV .Q10H [facility] Last Admin: 05/01/18 04:09 Dose: Not Given Iron/Minerals/Multivitamins (Theragran M) 1 tab PO DAILY [facility] Last Admin: 05/01/18 08:26 Dose: 1 tab Loperamide HCl (Imodium) 2 mg PO PRN PRN PRN Reason: Diarrhea/Loose Stools Mineral Oil/White Petrolatum (Eucerin Cream) 0 gm TOP BIDPRN PRN PRN Reason: Dry Skin Miscellaneous Information (Communication Order-Pharmacy) 1 each FS ASDIR [facility] Naloxone HCl (Narcan) 0.2 mg IV Q5MIN PRN PRN Reason: RR <=8 OR OBTUNDED/UNAROUSABLE Naloxone HCl (Narcan) 0.1 mg IVP Q15MIN PRN PRN Reason: URINARY RETENTION Ondansetron HCl (Zofran) 4 mg IVP Q6H PRN PRN Reason: Nausea/Vomiting Last Admin: 04/30/18 10:04 Dose: 4 mg Pantoprazole Sodium (Protonix) 40 mg PO DAILY [facility] Last Admin: 05/01/18 08:26 Dose: 40 mg Promethazine HCl (Phenergan Suppository) 25 mg MT Q4H PRN PRN Reason: Nausea/Vomiting Promethazine HCl (Phenergan) 12.5 mg IM Q4H PRN PRN Reason: Nausea/Vomiting Senna/Docusate Sodium (Senokot S) 2 tab PO BID [facility] Last Admin: 05/01/18 08:26 Dose: 2 tab Sodium Chloride (Flush - Normal Saline) 10 ml IVF PRN PRN PRN Reason: Saline Flush Last Admin: 04/30/18 18:38 Dose: 10 ml Sodium Chloride ([place] Nasal [place] 0.65%) 0 ml EA NARE QIDPRN PRN PRN Reason: Nasal Congestion Sulfasalazine (Azulfidine) 500 mg PO QID [facility] Last Admin: 05/01/18 08:27 Dose: Not Given Throat Lozenges (Cepastat Lozenges) 1 esequiel PO Q2H PRN PRN Reason: Sore Throat Tramadol HCl (Ultram) 50 mg PO Q6H PRN PRN Reason: Mild Pain 1-3 Tramadol HCl (Ultram) 100 mg PO Q6H PRN PRN Reason: Moderate Pain 4-6 Last Admin: 04/30/18 13:16 Dose: 100 mg Trazodone HCl (Desyrel) 75 mg PO [facility] Last Admin: 04/30/18 20:44 Dose: 75 mg Zolpidem Tartrate (Ambien) 5 mg PO HSPRN PRN PRN Reason: Insomnia
[2018-05-01] MEDS: diphenhydrAMINE 25 MG CAP PO PRN (18:29)
[2018-05-01] MEDS: traZODone HCl 50 MG TAB PO SCH (21:00)
[2018-05-02 08:08] VITALS: BP 112/67; TEMP 99
[2018-05-02] MEDS: HYDROcodone/Acetaminophen 5/325 mg Tablet PO PRN (08:25)
[2018-05-02] MEDS: Losartan/Hydrochlorothiazide 100 mg/25 mg Tablet PO SCH (08:27)
[2018-05-02] MEDS: Docusate 100 MG CAP PO SCH (08:27)
[2018-05-02] MEDS: Multivitamin W/ Minerals 1 TAB PO SCH (08:27)
[2018-05-02] MEDS: Cephalexin 250 MG CAP PO SCH (08:27)
[2018-05-02] MEDS: Aspirin 81 mg Enteric Coated Tablet PO SCH (08:27)
[2018-05-02] MEDS: sulfaSALAzine 500 MG TAB PO SCH (08:27)
[2018-05-02] MEDS: CeleCOXIB 100 MG CAP PO SCH (08:28)
[2018-05-02] MEDS: Senokot S 8.6-50 MG TAB PO SCH (08:28)
[2018-05-02] MEDS: Calcium Carbonate + Vit D 1 TAB PO SCH (08:28)
[2018-05-02] MEDS: Ferrous Gluconate 324 MG TAB PO SCH (08:28)
--- NOTE | 2018-05-02 10:37 | DIS ---
DATE OF ADMISSION: 04/29/2018 DATE OF DISCHARGE: 05/02/2018 PRIMARY CARE PHYSICIAN: [facility] Call admission. DISCHARGE DISPOSITION: [facility]. PRIMARY DISCHARGE DIAGNOSIS: Status post left total hip replacement. SECONDARY DISCHARGE DIAGNOSES: Rheumatoid arthritis, history of postsurgical hypoparathyroidism, morbid obesity with BMI of 42, hypertension, gastroesophageal reflux disease, chronic low back pain, normocytic normochromic anemia. PRIMARY PROCEDURE/OPERATION: Left hip replacement by Dr. Spaulding on April 29, 2018. RADIOLOGICAL INVESTIGATION: Hip x-ray. SIGNIFICANT LABORATORY DATA: WBC 9.8, hemoglobin 10.6, platelet 270. Sodium 140, potassium 3.8, chloride 105, carbon dioxide 29, BUN 13, creatinine 0.75, glucose 131, calcium 8.6. AST 19, ALT 16, alkaline phosphatase 62, and albumin 3.6. DISCHARGE MEDICATIONS: 1. Calcium with vitamin D 2 tablets p.o. b.i.d. 2. Celebrex 200 mg p.o. daily p.r.n. 3. Vitamin D3 1000 units p.o. daily. 4. Diazepam 10 mg p.o. b.i.d. p.r.n. 5. Colace 200 mg daily. 6. Nexium 40 mg daily. 7. Losartan with hydrochlorothiazide 100/25 one tablet daily. 8. Multivitamin one tablet p.o. daily. 9. Lyrica 75 mg daily. 10. Sulfasalazine 500 mg p.o. q.i.d. 11. Trazodone 75 mg p.o. at bedtime. 12. Aspirin 81 mg p.o. b.i.d. 13. Pain medication will defer to primary team. CONTRAINDICATION: None. CODE STATUS: Full code. INPATIENT ADVANCED ANALYTICS ASSOCIATE: Dr. Spaulding was primary while in the hospital. Sound Team was consulted for medical comanagement. TEST RESULTS PENDING ON DISCHARGE: None. ALLERGIES: NO KNOWN DRUG ALLERGIES. DISCHARGE PLAN: Post hospital, the patient is planned for discharge to [facility]. Subsequently, the patient will follow up with Dr. Spaulding on May 21, 2018 at 10:45 a.m. The patient will make appointment with primary care physician in 1 or 2 weeks. HOSPITAL COURSE: A 68-year-old female with above-mentioned medical problem, who has underlying osteoarthritis. She was electively admitted by Dr. Spaulding for left total hip replacement. The patient failed all outpatient conservative treatment option and that is why she was electively admitted for left hip replacement, which was done on April 29, 2018 without any complications. Postoperatively, she was given aspirin for DVT prophylaxis. She had epidural in place. She did [employer] protocol treatment PT/OT while in the hospital. While in hospital, she did not have any complication. She did well with the [facility] protocol, but she was requiring more rehabilitation and that is why with help of residential case manager, we arranged [place] swing bed. Sound Team was consulted for medical comanagement. The patient is seen and examined at bedside today. REVIEW OF SYSTEMS: All review of systems reviewed with her and negative. PHYSICAL EXAMINATION: VITAL SIGNS: Currently temperature 99, pulse 93, respiratory rate 18, saturation 93% on room air, blood pressure 112/67. Weight 225 pounds. GENERAL: The patient is currently alert and awake, no obvious acute distress. HEENT: Head; normocephalic, atraumatic. Eyes; pupils round, reactive to light. Extraocular muscle intact. ENT; oropharynx within normal limits. Moist mucous membranes. No oral lesion. No pharyngeal erythema. No exudate. NECK: Supple. No JVD. No thyromegaly. No carotid bruit. LUNGS: Clear to auscultation without any rhonchi or rales. CARDIAC: S1 and S2 regular without any murmur. ABDOMEN: Soft and benign without any tenderness. EXTREMITIES: No edema. NEUROLOGIC: Nonfocal examination. Overall, the patient is medically stable for discharge today. Job ID: [id number]
--- NOTE | 2018-05-02 11:37 | PDOC.PN ---
- Subjective Encounter Start Date: 05/02/18 Encounter Start Time: 09:25 Patient seen and examined. No new complaints. No overnight events - Objective Resuscitation Status - Order Detail: 04/29/18 14:27 Resuscitation Status Routine Resuscitation Status: FULL: Full Resuscitation MAR Reviewed: Yes Vital Signs & Weight: Vital Signs (12 hours) Temp Pulse Resp BP BP Pulse Ox 05/02/18 08:00 93 L 05/02/18 07:58 99.0 F 93 18 112/67 93 L 05/02/18 04:00 98.3 F 83 20 129/75 94 L 05/02/18 00:00 98.9 F 80 20 108/66 93 L Weight Admit Weight 225 lb Weight 225 lb I&O: 05/01/18 05/02/18 05/03/18 06:59 06:59 06:59 Intake Total 1320 1830 Output Total 1900 1275 600 Balance -580 056 -600 Result Diagrams: 05/01/18 05:50 04/29/18 14:52 Phys Exam - Physical Examination Constitutional: NAD HEENT: PERRLA, moist MMs, sclera anicteric Neck: no JVD, supple Respiratory: no wheezing, no rales, no rhonchi Cardiovascular: RRR, no significant murmur, no rub Gastrointestinal: soft, non-tender, no distention, positive bowel sounds Musculoskeletal: no edema, pulses present Neurological: non-focal, normal sensation, moves all 4 limbs Psychiatric: normal affect, A&O x 3 Skin: no rash, normal turgor Dx/Plan (1) Status post total hip replacement, left Code(s): Z96.642 - PRESENCE OF LEFT ARTIFICIAL HIP JOINT Status: Acute (2) Rheumatoid arthritis Code(s): M06.9 - RHEUMATOID ARTHRITIS, UNSPECIFIED Status: Chronic (3) Postsurgical hypoparathyroidism Code(s): E89.2 - POSTPROCEDURAL HYPOPARATHYROIDISM Status: Chronic (4) GERD (gastroesophageal reflux disease) Code(s): K21.9 - GASTRO-ESOPHAGEAL REFLUX DISEASE WITHOUT ESOPHAGITIS Status: Chronic (5) Hypertension Code(s): I10 - ESSENTIAL (PRIMARY) HYPERTENSION Status: Chronic (6) Morbid obesity with BMI of 40.0-44.9, adult Code(s): E66.01 - MORBID (SEVERE) OBESITY DUE TO EXCESS CALORIES; Z68.41 - BODY MASS INDEX (BMI) 40.0-44.9, ADULT Status: Chronic (7) Anemia, normocytic normochromic Code(s): D64.9 - ANEMIA, UNSPECIFIED Status: Chronic (8) Chronic low back pain Code(s): M54.5 - LOW BACK PAIN; G89.29 - OTHER CHRONIC PAIN Status: Chronic - Plan cont current plan of care, PT/OT, social group worker * medication reviewed as below * symptomatic treatment * see discharge barak. Review of Systems - Review of Systems ENT: negative: Ear Pain, Ear Discharge, Nose Pain, Nose Discharge, Nose Congestion, Mouth Pain, Mouth Swelling, Throat Pain, Throat Swelling, Other Respiratory: negative: Cough, Dry, Shortness of Breath, Hemoptysis, SOB with Excertion, Pleuritic Pain, Sputum, Wheezing Cardiovascular: negative: chest pain, palpitations, orthopnea, paroxysmal nocturnal dyspnea, edema, light headedness, other Gastrointestinal: negative: Nausea, Vomiting, Abdominal Pain, Diarrhea, Constipation, Melena, Hematochezia, Other Genitourinary: negative: Dysuria, Frequency, Incontinence, Hematuria, Retention , Other Musculoskeletal: negative: Neck Pain, Shoulder Pain, Arm Pain, Back Pain, Hand Pain, Leg Pain, Foot Pain, Other Skin: negative: Rash, Lesions, Jack, Bruising, Other - Medications/Allergies Allergies/Adverse Reactions: Allergies Allergy/AdvReac Type Severity Reaction Status Date / Time No Known Allergies Allergy Verified 04/17/18 12:31
--- NOTE | 2018-05-03 06:02 | DIS ---
DATE OF ADMISSION: 04/29/2018 DATE OF DISCHARGE: 05/02/2018 CONSULTANTS: [facility] physicians and [facility]. PREOPERATIVE DIAGNOSIS: Degenerative joint disease, right hip. POSTOPERATIVE DIAGNOSIS: Degenerative joint disease, right hip. PROCEDURE PERFORMED: Right total hip arthroplasty. BRIEF HOSPITAL COURSE: This is a 68-year-old female who had ongoing hip pain. She failed conservative management and was indicated for the above-mentioned procedure. Postoperative, she was admitted to the surgical floor where she worked with Physical and Occupational therapy. She received postoperative antibiotics. Pain was controlled by the Anesthesia Group. No complications were incurred during her hospital stay. On postoperative day #3, she was discharged to [facility], [place]. DISCHARGE DISPOSITION: [facility] [place]. DISCHARGE CONDITION: Stable. DISCHARGE MEDICATIONS: See MAR. DISCHARGE INSTRUCTIONS: The patient will follow up with Dr. Spaulding as scheduled in 2 to 3 weeks. Job ID: [id number]
== END 2018-05-02 10:44 | disposition swing bed (61) | DRG 470 ==
LOC: SURG A 04-29 07:23 → SJJU 04-29 14:04
PROVIDERS: ADMIT Orthopaedic Surgery; ATTEND Orthopaedic Surgery
PROC: 0SRB039 Replacement of Left Hip Joint with Ceramic Synthetic Substitute, Cemented, Open Approach (ICD-10-PCS; principal; 2018-04-29)
DX: M16.12 Unilateral primary osteoarthritis, left hip (principal); Z68.41 Body mass index [BMI] 40.0-44.9, adult; M06.9 Rheumatoid arthritis, unspecified; E89.2 Postprocedural hypoparathyroidism; K21.9 Gastro-esophageal reflux disease without esophagitis; I10 Essential (primary) hypertension; E66.01 Morbid (severe) obesity due to excess calories; G89.29 Other chronic pain; M54.5 Low back pain; D64.9 Anemia, unspecified
CPT/HCPCS: 36415; 80053; 85027; J0131; J1885; J2001; J2250; J2405; J2704; J2795; J3010; J3370; J3490; J7050

== ENCOUNTER 2018-04-24 12:39 | Outpatient (CLI) | payer MEDICARE, BC ==
[2018-04-24 13:20] LABS: #Basophils 0.1 thou/uL (0.0-0.2); #Eosinphils 0.1 thou/uL (0.0-0.7); #Lymphocytes 2.2 thou/uL (1.20-3.40); #Monocytes 0.8 thou/uL (0.11-0.59); #Neutrophils 5.4 thou/uL (1.40-6.50); %Basophils 0.6 % (0.0-1.0); %Eosinophils 1.5 % (0.0-10.0); %Lymphocytes 25.9 % (21.0-51.0); %Monocytes 8.9 % (0.0-10.0); %Neutrophils 63.1 % (42.0-75.0); Hemoglobin 12.9 g/dL (12.0-16.0); Mean Corpuscular HGB CONC 31.9 g/dL (32.0-36.0); Mean Corpuscular Hemoglobin 30.3 pg (27.0-31.0); Mean Corpuscular Volume 94.9 fL (78.0-98.0); Platelet Count 377 thou/uL (130-400); RBC Distribution Width 11.9 % (11.5-14.5); Red Blood Cell (RBC) Count 4.25 mill/uL (4.20-5.40); White Blood Cell (WBC) Count 8.6 thou/uL (4.8-10.8)
[2018-04-24 13:40] LABS: Anion Gap 14 mmol/L (10-20); BUN (Urea Nitrogen) 19 mg/dL (9.8-20.1); Calc. Creatinine Clearance 0 mL/min (70-130); Calcium 9.6 mg/dL (7.8-10.44); Carbon Dioxide 26 mmol/L (23-31); Chloride 98 mmol/L (98-107); Estimated GFR-MDRD 66; Glucose 86 mg/dL (80-115); Sodium 134 mmol/L (136-145)
== END 2018-04-24 12:40 | disposition home or self-care (01) ==
LOC: LABBT 12:39
PROVIDERS: ATTEND Orthopaedic Surgery
DX: Z01.812 Encounter for preprocedural laboratory examination (principal); M16.12 Unilateral primary osteoarthritis, left hip
CPT/HCPCS: 80048; 85025; 86850; 86900; 86901

== ENCOUNTER 2019-04-14 10:13 | Outpatient (CLI) | payer MEDICARE, BC ==
--- NOTE | 2019-04-21 14:46 | MMO ---
Bilateral MAMMO Bilat Screen [facility]. CLINICAL HISTORY: Patient is 69 years old and is seen for screening. The patient has the following family history of breast cancer: paternal aunt, at age 68, malignant (generic). The patient has no personal history of cancer. The patient has a history of Breast reduction in 2010. VIEWS: The views performed were: bilateral craniocaudal with tomosynthesis and bilateral mediolateral oblique with tomosynthesis. FILMS COMPARED: The present examination has been compared to a prior imaging study performed at [facility] on 09/28/2014. This study has been interpreted with the assistance of computer-aided detection. MAMMOGRAM FINDINGS: The breasts are almost entirely fat. Finding 1: There are stable benign appearing calcifications seen in both breasts. Finding 2: There are multiple masses of varying size with circumscribed margins seen in both breasts. There are no suspicious masses, suspicious calcifications, or new areas of architectural distortion. IMPRESSION: THERE IS NO MAMMOGRAPHIC EVIDENCE OF MALIGNANCY. A ROUTINE FOLLOW-UP MAMMOGRAM IN 1 YEAR IS RECOMMENDED. THE RESULTS OF THIS EXAM WERE SENT TO THE PATIENT. ACR BI-RADS Category 2 - Benign finding MAMMOGRAPHY NOTE: 1. A negative mammogram report should not delay a biopsy if a dominant of clinically suspicious mass is present. 2. Approximately 10% to 15% of breast cancers are not detected by mammography. 3. Adenosis and dense breasts may obscure an underlying neoplasm. Reported by: SERGIO CALDWELL MD Electonically Signed: [id number]
== END 2019-04-14 10:14 | disposition home or self-care (01) ==
LOC: BICMAMMO 10:13
PROVIDERS: ATTEND Family Medicine
DX: Z12.31 Encounter for screening mammogram for malignant neoplasm of breast (principal); Z80.3 Family history of malignant neoplasm of breast; Z98.82 Breast implant status
CPT/HCPCS: 77063; 77067

== ENCOUNTER 2021-08-29 12:55 | Outpatient (CLI) | payer MEDICARE, BC | END 2021-08-29 12:56 | disposition home or self-care (01) | LOC: BICMAMMO 12:55 | PROVIDERS: ATTEND Internal Medicine | DX: Z12.31 Encounter for screening mammogram for malignant neoplasm of breast (principal); Z13.820 Encounter for screening for osteoporosis; M25.571 Pain in right ankle and joints of right foot; M85.851 Other specified disorders of bone density and structure, right thigh; Z80.3 Family history of malignant neoplasm of breast; Z98.82 Breast implant status | CPT/HCPCS: 77063; 77067; 77080 ==

== ENCOUNTER 2022-06-14 10:04 | Outpatient (CLI) | payer MEDICARE ==
[2022-06-14 11:12] LABS: #Basophils 0.1 10x3/uL (0.0-0.2); #Eosinphils 0.2 10x3/uL (0.0-0.5); #Monocytes 0.6 10x3/uL (0.0-1.1); %Basophils 1.1 % (0.0-2.0); %Eosinophils 2.4 % (0.0-6.0); %Lymphocytes 20.3 % (18.0-47.0); %Monocytes 8.4 % (0.0-10.0); %Neutrophils 67.3 % (40.0-75.0); Hemoglobin 12.6 g/dL (12.0-15.5); Mean Corpuscular HGB CONC 31.6 g/dL (32.0-36.0); Mean Corpuscular Hemoglobin 31.3 pg (27.0-33.0); Mean Corpuscular Volume 99.3 fl (81.6-98.3); Mean Platelet Volume 9.6 fl (7.4-10.4); Platelet Count 354 10x3/uL (150-450); RBC Distribution Width 13.7 % (11.5-14.5); Red Blood Cell (RBC) Count 4.02 10x6/uL (3.90-5.03); White Blood Cell (WBC) Count 7.5 10x3/uL (3.5-10.5)
[2022-06-14 11:21] LABS: INR-International Normal Ratio 0.9; Prothrombin Time 9.9 sec (9.5-12.1)
[2022-06-14 11:36] LABS: Anion Gap 15 mmol/L (10-20); BUN (Urea Nitrogen) 15 mg/dL (9.8-20.1); Calc. Creatinine Clearance 0 mL/min (70-130); Calcium 9.4 mg/dL (7.8-10.44); Carbon Dioxide 28 mmol/L (23-31); Chloride 104 mmol/L (98-107); Estimated GFR 62; Glucose 116 mg/dL (83-110); Potassium 5.5 mmol/L (3.5-5.1); Sodium 141 mmol/L (136-145)
== END 2022-06-14 10:05 | disposition home or self-care (01) ==
LOC: LABBT 10:04
PROVIDERS: ATTEND Orthopaedic Surgery
DX: Z01.818 Encounter for other preprocedural examination (principal); M17.0 Bilateral primary osteoarthritis of knee
CPT/HCPCS: 80048; 85025; 85610; 87081; 93005; 93010

== ENCOUNTER 2023-03-18 14:48 | Outpatient (CLI) | payer MEDICARE | END 2023-03-18 14:49 | disposition home or self-care (01) | LOC: BICRAD 14:48 | PROVIDERS: ATTEND Internal Medicine Rheumatology | DX: M54.2 Cervicalgia (principal); M47.812 Spondylosis without myelopathy or radiculopathy, cervical region | CPT/HCPCS: 72040 ==

== ENCOUNTER 2024-01-30 08:34 | Outpatient (CLI) | payer MEDICARE | END 2024-01-30 08:35 | disposition home or self-care (01) | LOC: MRI 08:34 | PROVIDERS: ATTEND Orthopaedic Surgery | DX: M67.432 Ganglion, left wrist (principal); S63.502A Unspecified sprain of left wrist, initial encounter ==

== ENCOUNTER 2025-03-02 09:04 | Outpatient (CLI) | payer MEDICARE | END 2025-03-02 09:05 | disposition home or self-care (01) | LOC: CT 09:04 → BICCT 09:05 | PROVIDERS: ATTEND Nurse Practitioner Family | DX: S32.501A Unspecified fracture of right pubis, initial encounter for closed fracture (principal); M25.551 Pain in right hip; M47.816 Spondylosis without myelopathy or radiculopathy, lumbar region; M47.817 Spondylosis without myelopathy or radiculopathy, lumbosacral region; M46.1 Sacroiliitis, not elsewhere classified; M16.11 Unilateral primary osteoarthritis, right hip; Z96.642 Presence of left artificial hip joint; Z90.710 Acquired absence of both cervix and uterus; Z91.81 History of falling | CPT/HCPCS: 72192 ==